=== PATIENT | female | born 1965 | race Asian ===

== ENCOUNTER → 2016-11-28 | Outpatient (CLI) | payer OTHER ==
[~2016-11-28] MED LIST: AMIT10TA PO; DIPH25CA61 PO
== END | disposition home or self-care (01) ==
LOC: CFH 07:11
PROVIDERS: ATTEND Internal Medicine
DX: Z12.31 Encounter for screening mammogram for malignant neoplasm of breast (principal); Z85.3 Personal history of malignant neoplasm of breast; Z90.11 Acquired absence of right breast and nipple
CPT/HCPCS: 77063; G0202

== ENCOUNTER → 2017-03-16 | Outpatient (CLI) | payer OTHER ==
[~2017-03-16] MED LIST changes: +SUMA100T4 PO
== END | disposition home or self-care (01) ==
LOC: STAR 10:14
PROVIDERS: ATTEND Plastic Surgery
DX: Z02.9 Encounter for administrative examinations, unspecified (principal)

== ENCOUNTER 2017-03-22 13:30 | Day surgery (SDC) | payer OTHER ==
[2017-03-16 11:05] VITALS: BP 122/87
[~2017-03-22] VITALS: Ht 160 cm; Wt 58.6 kg
[~2017-03-22 13:30] MED LIST changes: +CEFAZOLIN 1,000 MG ONE; +DEXAMETHASONE 4 MG/ML, 1ML ONE; +ONDANSETRON 2MG/ML, 2ML ONE; +PROPOFOL 10 MG/ML, 20ML ONE
[2017-03-22] MEDS ORDERED: LACTATED RINGERS 1,000 ML IV SCH (14:26)
[2017-03-22] MEDS ORDERED: FENTANYL PF 250 MCG/5ML ONE (14:44)
[2017-03-22] MEDS ORDERED: MIDAZOLAM 1 MG/ML, 2ML ONE (14:44)
[2017-03-22] MEDS ORDERED: CEFAZOLIN 1,000 MG ONE (15:25)
[2017-03-22] MEDS ORDERED: EPINEPHRINE 1 MG/ML, 1ML ONE (15:25)
[2017-03-22] MEDS ORDERED: GENTAMICIN 80 MG/2 ML ONE (15:25)
[2017-03-22] MEDS ORDERED: SODIUM BICARBONATE 1 MEQ/ML, 50ML VIAL ONE (15:25)
[2017-03-22] MEDS ORDERED: BACITRACIN 50,000 UNIT ONE (15:26)
[2017-03-22] MEDS ORDERED: LIDOCAINE-MPF 2% ,5ML ONE (15:27)
[2017-03-22] MEDS ORDERED: DIAZEPAM 5 MG/ML, 2ML IVPush PRN (17:00)
[2017-03-22] MEDS ORDERED: ALBUTEROL SULFATE 2.5 MG/3 ML NPPB PRN (17:00)
[2017-03-22] MEDS ORDERED: ACETAMINOPHEN 325 MG TABLET PO PRN (17:00)
[2017-03-22] MEDS ORDERED: ONDANSETRON 2MG/ML, 2ML IVPush PRN (17:00)
[2017-03-22] MEDS ORDERED: OXYcodone 5 MG/5 ML ORAL.SOL UDC PO PRN (17:00)
[2017-03-22] MEDS ORDERED: EPHEDRINE 50 MG/ML, 1ML IVPush PRN (17:00)
[2017-03-22] MEDS ORDERED: MEPERIDINE/PF 25MG/0.5ML IVPush PRN (17:00)
[2017-03-22] MEDS ORDERED: PROMETHAZINE 25 MG/ML, 1ML IV PRN (17:00)
[2017-03-22] MEDS ORDERED: LABETALOL 5MG/ML, 20ML IV PRN (17:00)
[2017-03-22] MEDS ORDERED: hydrALAzine 20 MG/ML, 1ML IV PRN (17:00)
[2017-03-22] MEDS ORDERED: MIDAZOLAM 1 MG/ML, 2ML IV PRN (17:00)
[2017-03-22] MEDS ORDERED: METOPROLOL 1 MG/ML, 5ML IV PRN (17:00)
[2017-03-22] MEDS ORDERED: FENTANYL PF 100 MCG/2ML ONE (18:17)
[2017-03-22] MEDS ORDERED: ACETAMINOPHEN 650 MG/20.3 ML UDC ONE (18:17)
[2017-03-22] MEDS ORDERED: OXYcodone 5 MG/5 ML ORAL.SOL UDC ONE ×2 (18:17)
[2017-03-22] MEDS: FENTANYL PF 100 MCG/2ML IV PRN ×3 (18:24→18:39)
[2017-03-22] MEDS ORDERED: HYDROmorphone 2 MG/ML, 1ML ONE (18:35)
[2017-03-22] MEDS: HYDROmorphone 1 MG/ML, 1ML IV PRN ×5 (18:45→20:08)
[2017-03-22] MEDS ORDERED: ONDANSETRON 2MG/ML, 2ML ONE (20:09)
== END 2017-03-22 22:00 | disposition home or self-care (01) ==
LOC: OUT 13:30 → 4NOR 20:32 → OUT 22:00
PROVIDERS: ATTEND Plastic Surgery
DX: T85.44XA Capsular contracture of breast implant, initial encounter (principal); N65.1 Disproportion of reconstructed breast; J45.909 Unspecified asthma, uncomplicated; G43.909 Migraine, unspecified, not intractable, without status migrainosus; Y83.2 Surgical operation with anastomosis, bypass or graft as the cause of abnormal reaction of the patient, or of later complication, without mention of misadventure at the time of the procedure; Y92.89 Other specified places as the place of occurrence of the external cause; Z85.3 Personal history of malignant neoplasm of breast
CPT/HCPCS: 19340; 19350; 19371; 88307; C1789; J0171; J0690; J1100; J1170; J1580; J2250; J2405; J2704; J3010; J3490; J7120

== ENCOUNTER → 2017-12-30 | Outpatient (CLI) | payer OTHER ==
[~2017-12-30] MED LIST changes: -CEFAZOLIN 1,000 MG ONE; -DEXAMETHASONE 4 MG/ML, 1ML ONE; -ONDANSETRON 2MG/ML, 2ML ONE; -PROPOFOL 10 MG/ML, 20ML ONE
[2017-12-30 06:48] LABS: BASOPHILS # (AUTO) 0.02 x10^3/uL (0-0.1); BASOPHILS % (AUTO) 1 % (0-1); EOSINOPHILS # (AUTO) 0.17 x10^3/uL (0-0.4); EOSINOPHILS % (AUTO) 5 % (1-7); LYMPHOCYTES # (AUTO) 1.54 x10^3/uL (1-3.4); LYMPHOCYTES % (AUTO) 42 % (22-44); MD NO; MEAN CORPUSCULAR HEMOGLOBIN 30.4 pg (27.0-34.8); MEAN CORPUSCULAR HGB CONC 33.3 g/dL (32.4-35.8); MEAN CORPUSCULAR VOLUME 91.5 fL (80-100); MEAN PLATELET VOLUME 7.5 fL (7.4-10.4); MONOCYTES # (AUTO) 0.22 x10^3/uL (0.2-0.8); MONOCYTES % (AUTO) 6 % (2-9); NEUTROPHILS # (AUTO) 1.76 x10^3/uL (1.8-6.8); NEUTROPHILS % (AUTO) 47 % (42-75); PLATELET COUNT 279 x10^3/uL (130-400); RED BLOOD COUNT 4.98 x10^6/uL (3.82-5.3); RED CELL DISTRIBUTION WIDTH 13.4 % (9.6-15.2)
[2017-12-30 06:59] LABS: ALBUMIN 3.8 g/dL (3.4-5.0); ANION GAP 7 mmol/L (5-15); CALCIUM 8.9 mg/dL (8.5-10.1); CHLORIDE 107 mmol/L (98-107)
[2017-12-30 07:03] LABS: ALANINE AMINOTRANSFERASE 20 U/L (12-78); ALKALINE PHOSPHATASE 68 U/L (45-117); BILIRUBIN,TOTAL 0.4 mg/dL (0.2-1.0); CREATININE 0.86 mg/dL (0.55-1.02); TOTAL PROTEIN 7.9 g/dL (6.4-8.2)
== END | disposition home or self-care (01) ==
LOC: LAB 06:28
PROVIDERS: ATTEND Internal Medicine
DX: E74.39 Other disorders of intestinal carbohydrate absorption (principal); J30.2 Other seasonal allergic rhinitis
CPT/HCPCS: 36415; 80053; 83036; 85025

== ENCOUNTER → 2018-02-09 | Outpatient (CLI) | payer OTHER | END | disposition home or self-care (01) | LOC: CFH 12:31 | PROVIDERS: ATTEND Internal Medicine | DX: N60.02 Solitary cyst of left breast (principal); Z85.3 Personal history of malignant neoplasm of breast; Z90.11 Acquired absence of right breast and nipple | CPT/HCPCS: 76641; 77065 ==

== ENCOUNTER 2018-04-04 08:21 | Outpatient (CLI) | payer OTHER ==
[2018-04-04 09:22] LABS: BASOPHILS # (AUTO) 0.03 x10^3/uL (0-0.1); BASOPHILS % (AUTO) 1 % (0-1); EOSINOPHILS # (AUTO) 0.09 x10^3/uL (0-0.4); EOSINOPHILS % (AUTO) 2 % (1-7); LYMPHOCYTES % (AUTO) 35 % (22-44); MD NO; MEAN CORPUSCULAR HEMOGLOBIN 30.8 pg (27.0-34.8); MEAN CORPUSCULAR HGB CONC 33.4 g/dL (32.4-35.8); MEAN CORPUSCULAR VOLUME 92.3 fL (80-100); MEAN PLATELET VOLUME 7.3 fL (7.4-10.4); MONOCYTES # (AUTO) 0.33 x10^3/uL (0.2-0.8); MONOCYTES % (AUTO) 7 % (2-9); NEUTROPHILS # (AUTO) 2.85 x10^3/uL (1.8-6.8); NEUTROPHILS % (AUTO) 56 % (42-75); PLATELET COUNT 377 x10^3/uL (130-400); RED BLOOD COUNT 4.71 x10^6/uL (3.82-5.3); RED CELL DISTRIBUTION WIDTH 13.7 % (9.6-15.2)
[2018-04-04] MEDS ORDERED: MULT-90 PO (10:21)
[2018-04-04] MEDS ORDERED: ASCO-96 PO (10:21)
[2018-04-04] MEDS ORDERED: MELO7.5T31 PO (10:21)
== END 2018-04-04 23:59 | disposition home or self-care (01) ==
LOC: STAR 08:21
PROVIDERS: ATTEND Plastic Surgery
DX: Z01.818 Encounter for other preprocedural examination (principal); C50.911 Malignant neoplasm of unspecified site of right female breast; N64.89 Other specified disorders of breast; Z85.3 Personal history of malignant neoplasm of breast
CPT/HCPCS: 36415; 85025

== ENCOUNTER 2018-04-13 05:42 | Day surgery (SDC) | payer OTHER ==
[~2018-04-13] VITALS: Ht 160 cm; Wt 57.0 kg
[~2018-04-13 05:42] MED LIST changes: +ASCO-96 PO; +MELO7.5T31 PO; +MULT-90 PO
[2018-04-13] MEDS ORDERED: LACTATED RINGERS 1,000 ML IV SCH (06:07)
[2018-04-13 06:08] VITALS: BP 111/77
[2018-04-13] MEDS ORDERED: SODIUM BICARBONATE 1 MEQ/ML, 50ML VIAL ONE (06:23)
[2018-04-13] MEDS ORDERED: LIDOCAINE-MPF 2% ,5ML ONE (06:24)
[2018-04-13] MEDS ORDERED: BACITRACIN 50,000 UNIT ONE (06:24)
[2018-04-13] MEDS ORDERED: EPINEPHRINE 1 MG/ML, 1ML ONE (06:24)
[2018-04-13] MEDS ORDERED: MIDAZOLAM 1 MG/ML, 2ML ONE (06:33)
[2018-04-13] MEDS ORDERED: FENTANYL PF 100 MCG/2ML ONE ×2 (06:33→08:35)
[2018-04-13] MEDS ORDERED: GENTAMICIN 80 MG/2 ML ONE (06:34)
[2018-04-13] MEDS ORDERED: ACETAMINOPHEN 500 MG TABLET ONE (06:48)
[2018-04-13] MEDS ORDERED: GABAPENTIN 300 MG CAPSULE ONE (06:48)
[2018-04-13] MEDS ORDERED: hydrALAzine 20 MG/ML, 1ML IV PRN (07:00)
[2018-04-13] MEDS ORDERED: LABETALOL 5MG/ML, 20ML IV PRN (07:00)
[2018-04-13] MEDS ORDERED: MEPERIDINE/PF 25MG/0.5ML IVPush PRN (07:00)
[2018-04-13] MEDS ORDERED: LORazepam 2 MG/ML, 1ML IVPush PRN (07:00)
[2018-04-13] MEDS ORDERED: OXYcodone 5 MG/5 ML ORAL.SOL UDC PO PRN (07:00)
[2018-04-13] MEDS ORDERED: ACETAMINOPHEN 500 MG TABLET PO ONE (07:00)
[2018-04-13] MEDS ORDERED: SCOPOLAMINE PATCH, 1.5MG PATCH.TD72 TD ONE (07:00)
[2018-04-13] MEDS ORDERED: DIPHENHYDRAMINE 50 MG/ML, 1ML IVPush PRN (07:00)
[2018-04-13] MEDS ORDERED: GABAPENTIN 300 MG CAPSULE PO ONE (07:00)
[2018-04-13] MEDS ORDERED: SUGAMMADEX 200 MG/2 ML IVPush ONE (07:00)
[2018-04-13] MEDS ORDERED: METOCLOPRAMIDE 5 MG/ML, 2ML IV PRN (07:00)
[2018-04-13] MEDS ORDERED: ALBUTEROL SULFATE 2.5 MG/3 ML NPPB PRN (07:00)
[2018-04-13] MEDS ORDERED: NEOSTIGMINE 1 MG/ML, 10ML ONE (07:07)
[2018-04-13] MEDS ORDERED: GLYCOPYRROLATE 0.2MG/1ML, 5ML ONE (07:07)
[2018-04-13] MEDS ORDERED: ONDANSETRON 2MG/ML, 2ML ONE (07:07)
[2018-04-13] MEDS ORDERED: DEXAMETHASONE 4 MG/ML, 1ML ONE (07:07)
[2018-04-13] MEDS ORDERED: CEFAZOLIN 1,000 MG ONE (07:07)
[2018-04-13] MEDS ORDERED: PROPOFOL 10 MG/ML, 20ML ONE (07:07)
[2018-04-13] MEDS ORDERED: ROCURONIUM 10 MG/ML,10ML ONE (07:07)
[2018-04-13] MEDS ORDERED: BUPIVACAINE/PF-EPI 0.5% 1:200K ONE (07:20)
[2018-04-13] MEDS ORDERED: BUPIVACAINE/PF-EPI 0.5% 1:200K INFIL ONE (07:35)
[2018-04-13] MEDS ORDERED: BACITRACIN 50,000 UNIT IM ONE (07:36)
[2018-04-13] MEDS ORDERED: GENTAMICIN 80 MG/2 ML IV ONE (07:37)
[2018-04-13] MEDS ORDERED: OXYcodone 5 MG/5 ML ORAL.SOL UDC ONE (08:35)
[2018-04-13] MEDS: FENTANYL PF 100 MCG/2ML IV PRN ×2 (08:37→08:48)
[2018-04-13] MEDS ORDERED: HYDROmorphone 1 MG/ML, 1ML ONE (08:49)
[2018-04-13] MEDS: HYDROmorphone 2 MG/ML, 1ML IVPush PRN ×2 (09:00→09:15)
[2018-04-13] MEDS ORDERED: ONDANSETRON ODT 4 MG PO PRN (12:00)
[2018-04-13] MEDS ORDERED: ONDANSETRON ODT 4 MG ONE (12:01)
== END 2018-04-13 13:00 | disposition home or self-care (01) ==
LOC: OUT 05:42
PROVIDERS: ATTEND Plastic Surgery
DX: N65.1 Disproportion of reconstructed breast (principal); N64.89 Other specified disorders of breast; J45.909 Unspecified asthma, uncomplicated; Z88.5 Allergy status to narcotic agent
CPT/HCPCS: 19340; 19366; C1729; C1789; J0171; J0690; J1100; J1170; J1580; J2250; J2405; J2704; J2710; J3010; J3490; J7120; Q0162

== ENCOUNTER 2019-11-15 14:08 | Outpatient (CLI) | payer OTHER | END 2019-11-15 23:59 | disposition home or self-care (01) | LOC: CFH 14:08 | PROVIDERS: ATTEND Internal Medicine | DX: Z12.31 Encounter for screening mammogram for malignant neoplasm of breast (principal); N60.02 Solitary cyst of left breast; Z85.3 Personal history of malignant neoplasm of breast | CPT/HCPCS: 76641; 77063; 77067 ==